=== PATIENT | female | born 1975 | race Caucasian/White ===

== ENCOUNTER → 2016-07-11 | Outpatient (REF) | payer OTHER | LOC: M LAB REF 10:05 | PROVIDERS: ATTEND Physician Assistant | DX: B34.9 Viral infection, unspecified (principal) ==

== ENCOUNTER 2017-06-23 10:05 | Day surgery (SDC) | payer OTHER ==
[~2017-06-23] VITALS: Ht 167.6 cm; Wt 93.4 kg
[~2017-06-23 10:05] MED LIST: CLOM50TA9 PO; GLYCOPYRROLATE INJ 0.2 MG/ML 2 ML VIAL As Ordered ONE; HYDR-3713; LIDOCAINE 2% INJ 100 MG/5 ML SDV (FOR ANES.) As Ordered ONE; MIDAZOLAM INJ 2 MG/2 ML VIAL (J2250) As Ordered ONE; NEOSTIGMINE 10 MG/10 ML VIAL (J2710) As Ordered ONE; ONDANSETRON 4MG/2ML VIAL (J2405) As Ordered ONE; PROPOFOL 200 MG/20 ML VIAL As Ordered ONE; RANI150T PO; ROCURONIUM BROMIDE 50 MG/5 ML VIAL As Ordered ONE; TUMS500C PO; fentaNYL 100 MCG/2 ML INJECTION (J3010) As Ordered ONE
[2017-06-23] MEDS ORDERED: LR 1,000 ML IV ONE (10:30)
[2017-06-23] MEDS ORDERED: LIDOCAINE 1% MDV 20ML VIAL SQ PRN (10:30)
[2017-06-23 10:31] LABS: MEAN CORPUSCULAR HEMOGLOBIN 30.2 pg (27.0-33.0); MEAN CORPUSCULAR HGB CONC 34.4 g/dl (32.0-36.5); MEAN CORPUSCULAR VOLUME 87.9 fl (80.0-96.0); PLATELET COUNT, AUTOMATED 256 10^3/uL (150-450); WHITE BLOOD COUNT 6.2 10^3/uL (4.0-10.0)
[2017-06-23 10:52] LABS: CONTROL LINE UCG INT CTR LINE PRESENT
[2017-06-23] MEDS ORDERED: BUPIVACAINE HCL 0.25% 30 ML VIAL As Ordered ONE (11:54)
[2017-06-23] MEDS ORDERED: METHYLENE BLUE 0.5% (5MG/ML) 10 ML AMP (PROVAYBLUE)(Q9968 PER 1MG) As Ordered ONE (11:56)
[2017-06-23] MEDS ORDERED: ROCURONIUM BROMIDE 50 MG/5 ML VIAL As Ordered ONE (13:12)
[2017-06-23] MEDS ORDERED: fentaNYL 100 MCG/2 ML INJECTION (J3010) As Ordered ONE ×2 (13:50→13:54)
[2017-06-23] MEDS: fentaNYL 100 MCG/2 ML INJECTION (J3010) IV PRN ×4 (13:54→14:09)
[2017-06-23] MEDS ORDERED: KETOROLAC 30 MG/ML VIAL (J1885) As Ordered ONE (14:05)
[2017-06-23] MEDS ORDERED: HYDROmorphone HCL 1 MG/ML SYRINGE (J1170) As Ordered ONE (14:05)
[2017-06-23] MEDS ORDERED: OXYC1TAB23 PO (14:10)
[2017-06-23] MEDS ORDERED: LR 1,000 ML IV SCH ×2 (14:15→15:00)
[2017-06-23] MEDS ORDERED: KETOROLAC 30 MG/ML VIAL (J1885) IV PRN (14:15)
[2017-06-23] MEDS ORDERED: PERCOCET 5MG/325MG TAB PO PRN (14:15)
[2017-06-23] MEDS ORDERED: HYDROmorphone HCL 1 MG/ML SYRINGE (J1170) IV PRN (14:15)
[2017-06-23] MEDS ORDERED: ONDANSETRON 4MG/2ML VIAL (J2405) IV PRN (14:15)
[2017-06-23 15:20] VITALS: BP 123/80
--- NOTE | 2017-06-26 09:49 | RO ---
DATE OF PROCEDURE: 06/23/2017 PREOPERATIVE DIAGNOSIS: Pelvic pain, possible endometriosis. POSTOPERATIVE DIAGNOSIS: Pelvic pain, severe pelvic adhesions. No evidence of endometriosis. PROCEDURE: Laparoscopy, lysis of adhesions, chromotubation. SURGEON: Daniel Javed MD PROCUREMENT OFFICER: Qiana Lockhart MD ANESTHESIA: General endotracheal. ESTIMATED BLOOD LOSS: 50 mL. FINDINGS: Normal sized uterus. Dense adhesions of the uterus, the posterior cul-de-sac and the sigmoid colon. Bilateral dilated fallopian tubes with dense adhesions to the right. No evidence of spill of dye on the right fallopian tube. The left fallopian tube was free and moderately dilated. The left fallopian tube appeared to be patent with spill of dye noted at the fimbria in small amounts. Numerous peritubal adhesions bilaterally. Ovaries were adherent to the ovarian fossa bilaterally. There were adhesions to the cecum to the right anterior sidewall consistent with prior appendix surgery. Normal liver and upper abdomen. OPERATIVE SUMMARY: Patient was taken to the operating room where general endotracheal anesthesia was induced. She was prepped and draped in a sterile fashion in a dorsal lithotomy position. The Gutierrez catheter was placed. A ZUMI uterine manipulator was placed. A periumbilical incision was made with a scalpel. A Veress needle was placed through this incision while tenting up on the skin of the abdomen. Intra-abdominal location of the Veress needle was assessed using a saline filled syringe. A pneumoperitoneum was created. A 5 mm trocar using Visiport was inserted through this port. Three 5 mm suprapubic ports were placed under direct visualization. Grasping instruments were used to elevated pelvic structures and assess adhesions. Endo Kashif were used to sharply dissect numerous adhesions. There were adhesions of the omentum and bowel to the anterior uterus which were taken down sharply. Adhesions to the fallopian tube were taken down sharply. Adhesions to the uterus and the posterior cul-de-sac were taken down with a combination of blunt and sharp dissection. Chromotubation was performed in the following fashion: 60 mL of dilute methylene blue dye solution were attached in a syringe to the port of the ZUMI manipulator. Methylene blue was instilled through the manipulator into the uterus. The findings were as noted above. The pneumoperitoneum was released. All instruments were removed under direct visualization. The skin was closed with #4-0 Monocryl subcuticular sutures. Sponge, instrument and needle counts were correct. The patient went the recovery room in stable condition.
== END 2017-06-23 15:55 | disposition home or self-care (01) ==
LOC: M SDC 10:05
PROVIDERS: ATTEND Specialist
DX: R10.2 Pelvic and perineal pain (principal); N73.6 Female pelvic peritoneal adhesions (postinfective); E28.2 Polycystic ovarian syndrome; K21.9 Gastro-esophageal reflux disease without esophagitis; F17.210 Nicotine dependence, cigarettes, uncomplicated; Z79.899 Other long term (current) drug therapy
CPT/HCPCS: 36415; 49320; 58350; 84703; 85027; J1885; J2250; J2405; J2710; J3010; Q9968

== ENCOUNTER → 2017-09-06 | Outpatient (CLI) | payer OTHER ==
[2017-09-06 10:15] LABS: HCG, SERUM QUANTITATIVE < 1.0 MIU/ML
[2017-09-06 10:36] LABS: PROGESTERONE 0.5 NG/ML
[2017-09-06 10:36] LABS: ESTRADIOL 43.9 PG/ML; LUTEINIZING HORMONE 8.1 mIU/mL
== END ==
LOC: M LAB 09:05
DX: E28.9 Ovarian dysfunction, unspecified (principal)
CPT/HCPCS: 83001

== ENCOUNTER → 2017-09-21 | Outpatient (REF) | payer OTHER ==
[2017-09-21 21:54] LABS: APPEARANCE, URINE MANUAL CLEAR (CLEAR); COLOR, URINE MANUAL ORANGE (YELLOW)
[2017-09-21 21:55] LABS: BILIRUBIN, URINE MANUAL OBSCURED (NEGATIVE); GLUCOSE, URINE (UA) MANUAL OBSCURED mg/dL (NEGATIVE); KETONE, URINE MANUAL OBSCURED mg/dL (NEGATIVE); PH,URINE MAN 5.5 UNITS (5.0 - 7.0); PROTEIN, URINE MANUAL OBSCURED mg/dL (NEGATIVE); UROBILINOGEN, URINE MANUAL OBSCURED mg/dl (NORMAL)
[2017-09-21 21:56] LABS: BLOOD URINE MANUAL NEGATIVE (NEGATIVE); LEUKOCYTE ESTERASE, URINE MAN OBSCURED (NEGATIVE); MICROSCOPIC INDICATED? MAN YES (NO); NITRITE, URINE MANUAL OBSCURED (NEGATIVE)
[2017-09-21 22:05] LABS: SQUAMOUS EPITHELIAL CELL URINE LARGE AMOUNT /hpf (SMALL AMT)
[2017-09-21 22:06] LABS: BACTERIA, URINE MOD AMOUNT; MUCUS, URINE LARGE AMOUNT (NEGATIVE)
[2017-09-21 22:07] LABS: HYALINE CAST, URINE NONE SEEN /lpf (0-1); RBC, URINE 0-1 /hpf (0-3)
[2017-09-21 22:10] LABS: MICROSCOPIC EXAM PERFORMED
== END ==
LOC: M LAB REF 09:53
DX: N39.0 Urinary tract infection, site not specified (principal)

== ENCOUNTER → 2017-10-04 | Outpatient (CLI) | payer OTHER ==
[2017-10-04 10:36] LABS: HCG, SERUM QUANTITATIVE < 1.0 MIU/ML
[2017-10-04 10:37] LABS: PROGESTERONE 0.2 NG/ML
[2017-10-04 10:38] LABS: ESTRADIOL 102.2 PG/ML
== END ==
LOC: M LAB 09:18
DX: E28.9 Ovarian dysfunction, unspecified (principal)

== ENCOUNTER → 2017-10-27 | Outpatient (CLI) | payer OTHER ==
[2017-10-27 11:03] LABS: LUTEINIZING HORMONE 2.5 mIU/mL
[2017-10-27 11:03] LABS: PROGESTERONE 0.5 NG/ML
[2017-10-27 11:04] LABS: ESTRADIOL 20.5 PG/ML; FOLLICLE STIMULATING HORMONE 2.4 mIU/mL
[2017-10-27 11:05] LABS: HCG, SERUM QUANTITATIVE < 1.0 MIU/ML
== END ==
LOC: M LAB 09:43
DX: E28.9 Ovarian dysfunction, unspecified (principal)

== ENCOUNTER → 2017-11-03 | Outpatient (CLI) | payer OTHER ==
[2017-11-03 11:29] LABS: PROGESTERONE < 0.2 NG/ML
[2017-11-03 11:31] LABS: ESTRADIOL 69.6 PG/ML
[2017-11-03 11:44] LABS: LUTEINIZING HORMONE 5.3 mIU/mL
== END ==
LOC: M LAB 08:35
DX: E28.9 Ovarian dysfunction, unspecified (principal)
CPT/HCPCS: 83002

== ENCOUNTER → 2017-11-10 | Outpatient (CLI) | payer OTHER ==
[2017-11-10 11:13] LABS: PROGESTERONE < 0.2 NG/ML
[2017-11-10 11:13] LABS: LUTEINIZING HORMONE 4.4 mIU/mL
== END ==
LOC: M LAB 09:44
DX: E28.9 Ovarian dysfunction, unspecified (principal)
CPT/HCPCS: 83002

== ENCOUNTER → 2017-11-22 | Outpatient (CLI) | payer OTHER ==
[2017-11-22 10:18] LABS: PROGESTERONE 29.5 NG/ML
[2017-11-22 10:19] LABS: ESTRADIOL 1741.2 PG/ML
== END ==
LOC: M LAB 09:27
DX: E28.9 Ovarian dysfunction, unspecified (principal)
CPT/HCPCS: 84443

== ENCOUNTER → 2017-11-28 | Outpatient (CLI) | payer OTHER ==
[2017-11-28 10:02] LABS: HCG, SERUM QUANTITATIVE < 1.0 MIU/ML
[2017-11-28 10:07] LABS: PROGESTERONE 24.3 NG/ML
== END ==
LOC: M LAB 09:29
DX: E28.9 Ovarian dysfunction, unspecified (principal)

== ENCOUNTER → 2018-12-10 | Outpatient (REF) | payer OTHER ==
[~2018-12-10] MED LIST changes: -GLYCOPYRROLATE INJ 0.2 MG/ML 2 ML VIAL As Ordered ONE; -LIDOCAINE 2% INJ 100 MG/5 ML SDV (FOR ANES.) As Ordered ONE; -MIDAZOLAM INJ 2 MG/2 ML VIAL (J2250) As Ordered ONE; -NEOSTIGMINE 10 MG/10 ML VIAL (J2710) As Ordered ONE; -ONDANSETRON 4MG/2ML VIAL (J2405) As Ordered ONE; +OXYC1TAB23 PO; -PROPOFOL 200 MG/20 ML VIAL As Ordered ONE; -ROCURONIUM BROMIDE 50 MG/5 ML VIAL As Ordered ONE; -fentaNYL 100 MCG/2 ML INJECTION (J3010) As Ordered ONE
== END ==
LOC: M LAB REF 18:41
PROVIDERS: ATTEND Specialist
DX: Z12.4 Encounter for screening for malignant neoplasm of cervix (principal)

== ENCOUNTER → 2018-12-10 | Outpatient (REF) | payer OTHER ==
[2018-12-13 14:51] LABS: HPV HYBRID CAPTURE II Negative (Negative)
== END ==
LOC: M LAB REF 18:32
PROVIDERS: ATTEND Specialist
DX: Z12.4 Encounter for screening for malignant neoplasm of cervix (principal)
CPT/HCPCS: 87624; G0123

== ENCOUNTER → 2021-05-24 | Outpatient (REF) | payer OTHER | LOC: M SFHCWAGY 18:41 | PROVIDERS: ATTEND Specialist | DX: Z12.4 Encounter for screening for malignant neoplasm of cervix (principal); N76.0 Acute vaginitis | CPT/HCPCS: 87624; G0123 ==

== ENCOUNTER → 2021-05-24 | Outpatient (CLI) | payer OTHER ==
[~2021-05-24] MED LIST changes: +ESOM0.1C PO
== END ==
LOC: M WHC 12:15
PROVIDERS: ATTEND Specialist
DX: Z12.31 Encounter for screening mammogram for malignant neoplasm of breast (principal); Z53.9 Procedure and treatment not carried out, unspecified reason

== ENCOUNTER → 2021-07-16 | Outpatient (CLI) | payer OTHER ==
[~2021-07-16] MED LIST changes: -ESOM0.1C PO
== END ==
LOC: M WHC 14:40
PROVIDERS: ATTEND Specialist
DX: Z12.31 Encounter for screening mammogram for malignant neoplasm of breast (principal)

== ENCOUNTER → 2021-08-07 | Outpatient (CLI) | payer OTHER ==
[~2021-08-07] MED LIST changes: +ESOM0.1C PO
== END ==
LOC: M LABSMTC 10:37
PROVIDERS: ATTEND Anesthesiology
DX: Z01.818 Encounter for other preprocedural examination (principal); Z11.52 Encounter for screening for COVID-19

== ENCOUNTER 2021-08-12 09:30 | Day surgery (SDC) | payer OTHER ==
[~2021-08-12] VITALS: Ht 167.6 cm; Wt 96.6 kg
[~2021-08-12 09:30] MED LIST changes: +NS 1,000 ML IV ONE
[2021-08-12] MEDS ORDERED: fentaNYL 100 MCG/2 ML INJECTION As Ordered ONE (10:20)
[2021-08-12] MEDS ORDERED: LIDOCAINE 2% 100MG/5ML SDV (FOR ANES.) As Ordered ONE (10:21)
[2021-08-12] MEDS ORDERED: propofoL 200 MG/20 ML VIAL As Ordered ONE ×3 (10:21→11:44)
[2021-08-12 12:33] VITALS: BP 123/76
== END 2021-08-12 12:36 | disposition home or self-care (01) ==
LOC: M OPP 09:30
PROVIDERS: ATTEND Internal Medicine Gastroenterology
DX: K63.5 Polyp of colon (principal); K62.89 Other specified diseases of anus and rectum; D3A.026 Benign carcinoid tumor of the rectum; D37.4 Neoplasm of uncertain behavior of colon; D50.9 Iron deficiency anemia, unspecified; K44.9 Diaphragmatic hernia without obstruction or gangrene; R12 Heartburn; Z79.899 Other long term (current) drug therapy
CPT/HCPCS: 43239; 45380; 45385; 88305; J3010

== ENCOUNTER → 2021-09-10 | Outpatient (CLI) | payer OTHER ==
[~2021-09-10] MED LIST changes: -NS 1,000 ML IV ONE; +PROHANCE 279.3MG/ML 15ML VIAL ONE; +PROHANCE 279.3MG/ML 5ML VIAL ONE
== END ==
LOC: M PLAIMG 10:47
PROVIDERS: ATTEND Physician Assistant Medical
DX: R10.2 Pelvic and perineal pain (principal)
CPT/HCPCS: 72197; A9576

== ENCOUNTER → 2021-09-14 | Outpatient (CLI) | payer OTHER ==
[~2021-09-14] MED LIST changes: +GASTROGRAFIN SOLUTION 30ML (Q9963) As Ordered ONE; +ISOVUE-370 76% 100ML VIAL As Ordered ONE; -PROHANCE 279.3MG/ML 15ML VIAL ONE; -PROHANCE 279.3MG/ML 5ML VIAL ONE
== END ==
LOC: M RAD 14:30
PROVIDERS: ATTEND Surgery
DX: D3A.026 Benign carcinoid tumor of the rectum (principal)

== ENCOUNTER → 2021-11-10 | Outpatient (CLI) | payer OTHER ==
[~2021-11-10] MED LIST changes: -GASTROGRAFIN SOLUTION 30ML (Q9963) As Ordered ONE; -ISOVUE-370 76% 100ML VIAL As Ordered ONE
== END ==
LOC: M LABSMTC 11:38
PROVIDERS: ATTEND Surgery
DX: Z20.822 Contact with and (suspected) exposure to COVID-19 (principal)

== ENCOUNTER → 2022-04-25 | Outpatient (CLI) | payer OTHER | LOC: M WHC 14:52 | PROVIDERS: ATTEND Specialist | DX: D25.9 Leiomyoma of uterus, unspecified (principal); N83.291 Other ovarian cyst, right side ==

== ENCOUNTER → 2022-06-09 | Outpatient (REF) | payer OTHER | LOC: M SFHCWAGY 16:44 | PROVIDERS: ATTEND Specialist | DX: Z12.4 Encounter for screening for malignant neoplasm of cervix (principal); N88.8 Other specified noninflammatory disorders of cervix uteri | CPT/HCPCS: 87624; G0123 ==

== ENCOUNTER → 2023-03-20 | Outpatient (REF) | payer OTHER | LOC: M LAB REF 15:35 | PROVIDERS: ATTEND Podiatrist Foot & Ankle Surgery | DX: D22.71 Melanocytic nevi of right lower limb, including hip (principal) ==

== ENCOUNTER → 2023-12-14 | Outpatient (CLI) | payer OTHER ==
[~2023-12-14] MED LIST changes: -ESOM0.1C PO; +ESOM20CA2 PO
== END ==
LOC: M WHC 14:16
PROVIDERS: ATTEND Specialist
DX: Z12.31 Encounter for screening mammogram for malignant neoplasm of breast (principal); Z53.9 Procedure and treatment not carried out, unspecified reason

== ENCOUNTER → 2023-12-14 | Outpatient (REF) | payer OTHER ==
[2023-12-16 12:04] LABS: HPV APTIMA Not Detected (Not Detected)
== END ==
LOC: M SFHCWAGY 17:23
PROVIDERS: ATTEND Specialist
DX: Z12.4 Encounter for screening for malignant neoplasm of cervix (principal)
CPT/HCPCS: 87624; G0123

== ENCOUNTER → 2024-01-08 | Outpatient (CLI) | payer OTHER | LOC: M WHC 13:29 | PROVIDERS: ATTEND Specialist | DX: Z12.31 Encounter for screening mammogram for malignant neoplasm of breast (principal); D25.9 Leiomyoma of uterus, unspecified ==

== ENCOUNTER → 2024-05-21 | Outpatient (CLI) | payer OTHER ==
[~2024-05-21] MED LIST changes: +LORA-1041 PO; +METO1TAB7 PO
== END ==
LOC: M EKG 13:41
PROVIDERS: ATTEND Anesthesiology
DX: I10 Essential (primary) hypertension (principal)

== ENCOUNTER 2024-05-24 06:10 | Observation (INO) | payer OTHER ==
[~2024-05-24] VITALS: Ht 165.1 cm; Wt 99.0 kg
[2024-05-24] MEDS ORDERED: LR 1,000 ML IV SCH ×2 (06:20→11:30)
[2024-05-24 06:41] LABS: HEMATOCRIT 42.1 % (36.0-47.0); HEMOGLOBIN 14.4 g/dl (12.0-15.5); MEAN CORPUSCULAR HEMOGLOBIN 30.2 pg (27.0-33.0); MEAN CORPUSCULAR HGB CONC 34.2 g/dl (32.0-36.5); MEAN CORPUSCULAR VOLUME 88.3 fl (80.0-96.0); PLATELET COUNT, AUTOMATED 321 10^3/uL (150-450); RED BLOOD COUNT 4.77 10^6/uL (4.00-5.40); WHITE BLOOD COUNT 9.1 10^3/uL (4.0-10.0)
[2024-05-24] MEDS ORDERED: ACETAMINOPHEN 1000MG/100ML IV BAG As Ordered ONE (06:59)
[2024-05-24 07:02] LABS: BLOOD UREA NITROGEN 11 MG/DL (9-23); CALCIUM LEVEL 9.3 MG/DL (8.5-10.1); CARBON DIOXIDE LEVEL 26 MMOL/L (20-31); CHLORIDE LEVEL 109 MMOL/L (98-107); CREATININE FOR GFR 0.73 MG/DL (0.55-1.30); GLOMERULAR FILTRATION RATE > 60.0 (>58); GLUCOSE, FASTING 116 MG/DL (60-100); POTASSIUM SERUM 4.2 MMOL/L (3.5-5.1); SODIUM LEVEL 142 MMOL/L (136-145)
[2024-05-24] MEDS ORDERED: propofoL 200 MG/20 ML VIAL As Ordered ONE (07:03)
[2024-05-24] MEDS ORDERED: SUGAMMADEX SODIUM 500 MG/5 ML VIAL (BRIDION) As Ordered ONE (07:03)
[2024-05-24] MEDS ORDERED: KETOROLAC 60MG 2ML VIAL As Ordered ONE (07:03)
[2024-05-24] MEDS ORDERED: LIDOCAINE 2% 100MG/5ML SDV (FOR ANES.) As Ordered ONE (07:03)
[2024-05-24] MEDS ORDERED: ONDANSETRON 4MG 2ML VIAL As Ordered ONE (07:03)
[2024-05-24] MEDS ORDERED: ROCURONIUM BROMIDE 50MG/5ML VIAL As Ordered ONE (07:04)
[2024-05-24] MEDS ORDERED: fentaNYL 100 MCG/2 ML INJECTION As Ordered ONE (07:09)
[2024-05-24] MEDS ORDERED: MIDAZOLAM INJ 2MG/2ML VIAL As Ordered ONE (07:09)
[2024-05-24] MEDS ORDERED: HYDROmorphone HCL 2MG/ML 1ML VIAL As Ordered ONE (07:09)
[2024-05-24] MEDS: ceFAZolin SOD 2 GM in IV 1 EA IV ONE (07:45)
[2024-05-24] MEDS ORDERED: LABETALOL 100MG/20ML VIAL As Ordered ONE (09:19)
[2024-05-24] MEDS ORDERED: oxyCODONE 5MG TAB PO PRN (11:10)
[2024-05-24] MEDS ORDERED: fentaNYL 100 MCG/2 ML INJECTION IV PRN (11:10)
[2024-05-24] MEDS: ONDANSETRON 4MG 2ML VIAL IV PRN (11:23)
[2024-05-24] MEDS ORDERED: PERCOCET 5MG/325MG TAB PO PRN ×2 (11:30)
[2024-05-24] MEDS: LR 1,000 ML IV SCH (11:30)
[2024-05-24] MEDS ORDERED: ONDANSETRON 4MG 2ML VIAL IV PRN (11:30)
[2024-05-24] MEDS ORDERED: OXYC1TAB23 PO (11:53)
[2024-05-24] MEDS ORDERED: IBUP-1022 PO (11:53)
[2024-05-24] MEDS ORDERED: COLA100C5 PO (11:55)
[2024-05-24 13:15] VITALS: BP 131/83; TEMP 97.5; O2SAT 96
[2024-05-24] MEDS: PIPERACILLIN/TAZOBACTAM SOD 3.375 GM in DEXTROSE 5% (D5W) ADV/MINI-BAG 50 ML IV SCH (13:30)
[2024-05-24] MEDS: KETOROLAC 30 MG/ML 1ML VIAL IV PRN (13:32)
[2024-05-24 13:58] VITALS: BP 130/82; TEMP 97; O2SAT 97
[2024-05-24 14:45] VITALS: BP 129/79; TEMP 97.5; O2SAT 98
[2024-05-24] MEDS: OMEPRAZOLE 20MG CAP PO ONE (14:48)
[2024-05-24 15:45] VITALS: BP 128/79; TEMP 97.7; O2SAT 98
[2024-05-24] MEDS ORDERED: DOCUSATE SODIUM 100MG CAPSULE PO SCH (21:00)
== END 2024-05-24 19:30 | disposition home or self-care (01) ==
LOC: M SDC 06:10 → M RR INP 06:11 → M MS5PR 13:10
PROVIDERS: ADMIT Specialist; ATTEND Specialist
DX: N92.0 Excessive and frequent menstruation with regular cycle (principal); D25.9 Leiomyoma of uterus, unspecified; K91.72 Accidental puncture and laceration of a digestive system organ or structure during other procedure; K21.9 Gastro-esophageal reflux disease without esophagitis; E04.1 Nontoxic single thyroid nodule; D64.9 Anemia, unspecified; I10 Essential (primary) hypertension; Z79.899 Other long term (current) drug therapy; F17.218 Nicotine dependence, cigarettes, with other nicotine-induced disorders
CPT/HCPCS: 36415; 44604; 58571; 80048; 81025; 85027; 86850; 86900; 86901; 88307; 96365; 96375; J0131; J0665; J0690; J1100; J1171; J1885; J1920; J2250; J2405; J2543; J3010; S2900